=== PATIENT | female | born 1945 | race Caucasian/White ===

== ENCOUNTER 2022-09-25 09:11 | Outpatient (OUT) | payer MEDICARE, SELFPAY ==
[2022-09-25 09:31] LABS: Basophils Percent Auto 0.8 % (0.2-2.0); Eosinophils Absolute Auto 0.2 10^3/uL (0.0-0.7); Eosinophils Percent Auto 4.6 % (0.9-7.0); Hematocrit 33.9 % (36.0-48.0); Hemoglobin 10.7 g/dL (12.0-16.0); Immature Granulocytes Abs Auto 0.03 10^3/uL (0.00-0.03); Immature Granulocytes Pct Auto 0.6 % (0.0-0.5); Lymphocytes Absolute Auto 1.4 10^3/uL (1.2-3.8); Lymphocytes Percent Auto 29.7 % (20.5-60.0); Mean Corpuscular HGB Conc 31.6 g/dL (29.9-35.2); Mean Corpuscular Hemoglobin 31.3 pg (26.7-34.0); Mean Corpuscular Volume 99.1 fL (81.0-99.0); Mean Platelet Volume 10.9 fL (9.5-13.5); Monocytes Absolute Auto 0.5 10^3/uL (0.3-0.8); Monocytes Percent Auto 10.1 % (1.7-12.0); Neutrophils Absolute Auto 2.6 10^3/uL (1.4-6.5); Neutrophils Percent Auto 54.2 % (43.0-75.0); Platelet Count 234 10^3/uL (150-450); Red Blood Count 3.42 10^6/uL (4.20-5.40); Red Cell Distribution Width 15.2 % (11.0-15.0); White Blood Count 4.8 10^3/uL (4.0-11.0)
[2022-09-25 09:44] LABS: Estimated Average Glucose 114 mg/dL; Glycohemoglobin A1C 5.6 % (4.5-6.2)
[2022-09-25 10:11] LABS: Alanine Aminotransferase 28 U/L (14-59); Albumin Globulin Ratio 1.3; Albumin Level 4.2 g/dL (3.4-5.0); Alkaline Phosphatase 43 U/L (46-116); Aspartate Amino Transferase 31 U/L (15-37); BUN Creatinine Ratio 35.2; Bilirubin Direct 0.1 mg/dL (0.0-0.2); Bilirubin Total 0.3 mg/dL (0.2-1.0); Calcium 9.6 mg/dL (8.5-10.1); Carbon Dioxide 22.7 mmol/L (21.0-32.0); Chloride 106 mmol/L (98-107); Chol HDL Ratio 6.6; Cholesterol 145 mg/dL (<=200); Estimated GFR (African America 34 (>=60); Estimated GFR (Non-African Ame 28 (>=60); Globulin 3.2 g/dL; Glucose 155 mg/dL (74-106); HDL Cholesterol 22 mg/dL (40-60); Potassium 4.7 mmol/L (3.5-5.1); Sodium 139 mmol/L (136-145); Total Protein 7.4 g/dL (6.4-8.2); Triglycerides 498 mg/dL (<=150); VLDL CHOLESTEROL 99.6 mg/dL
[2022-09-25 10:13] LABS: LDL Cholesterol Direct 55 mg/dL
[2022-09-25 10:21] LABS: Microalbumin Urine Random <1.3 mg/dL (<=30.0)
== END 2022-09-25 09:12 | disposition home or self-care (01) ==
LOC: LAB 09:11
PROVIDERS: PCP Family Medicine; Visit Provider Family Medicine
DX: E11.65 Type 2 diabetes mellitus with hyperglycemia (principal); I12.9 Hypertensive chronic kidney disease with stage 1 through stage 4 chronic kidney disease, or unspecified chronic kidney disease; E11.22 Type 2 diabetes mellitus with diabetic chronic kidney disease; N18.32 Chronic kidney disease, stage 3b; Z79.899 Other long term (current) drug therapy; E78.5 Hyperlipidemia, unspecified
CPT/HCPCS: 36415; 80048; 80061; 80076; 82043; 82306; 83036; 83721; 85025

== ENCOUNTER 2023-08-26 09:16 | Outpatient (OUT) | payer MEDICARE, SELFPAY ==
[2023-08-26 09:44] LABS: Basophils Percent Auto 0.4 % (0.2-2.0); Eosinophils Absolute Auto 0.2 10^3/uL (0.0-0.7); Eosinophils Percent Auto 3.7 % (0.9-7.0); Hematocrit 30.8 % (36.0-48.0); Hemoglobin 9.5 g/dL (12.0-16.0); Immature Granulocytes Abs Auto 0.03 10^3/uL (0.00-0.03); Immature Granulocytes Pct Auto 0.7 % (0.0-0.5); Lymphocytes Absolute Auto 1.1 10^3/uL (1.2-3.8); Lymphocytes Percent Auto 23.9 % (20.5-60.0); Mean Corpuscular HGB Conc 30.8 g/dL (29.9-35.2); Mean Corpuscular Hemoglobin 30.8 pg (26.7-34.0); Mean Platelet Volume 10.9 fL (9.5-13.5); Monocytes Absolute Auto 0.4 10^3/uL (0.3-0.8); Monocytes Percent Auto 9.6 % (1.7-12.0); Neutrophils Absolute Auto 2.8 10^3/uL (1.4-6.5); Neutrophils Percent Auto 61.7 % (43.0-75.0); Platelet Count 183 10^3/uL (150-450); Red Blood Count 3.08 10^6/uL (4.20-5.40); Red Cell Distribution Width 16.3 % (11.0-15.0); White Blood Count 4.6 10^3/uL (4.0-11.0)
[2023-08-26 09:58] LABS: Estimated Average Glucose 117 mg/dL; Glycohemoglobin A1C 5.7 % (4.5-6.2)
[2023-08-26 10:28] LABS: Alanine Aminotransferase 49 U/L (14-59); Albumin Globulin Ratio 1.3; Albumin Level 3.8 g/dL (3.4-5.0); Alkaline Phosphatase 46 U/L (46-116); Anion Gap 14.2; Aspartate Amino Transferase 51 U/L (15-37); BUN Creatinine Ratio 21.8; Bilirubin Direct 0.1 mg/dL (0.0-0.2); Bilirubin Total 0.3 mg/dL (0.2-1.0); Calcium 8.9 mg/dL (8.5-10.1); Chloride 106 mmol/L (98-107); Chol HDL Ratio 7.7; Cholesterol 193 mg/dL (<=200); Estimated GFR (African America 47 (>=60); Estimated GFR (Non-African Ame 38 (>=60); Glucose 158 mg/dL (74-106); HDL Cholesterol 25 mg/dL (40-60); Potassium 4.2 mmol/L (3.5-5.1); Sodium 141 mmol/L (136-145); Total Protein 6.8 g/dL (6.4-8.2); Triglycerides 761 mg/dL (<=150); Uric Acid 3.3 mg/dL (2.6-6.0); VLDL CHOLESTEROL 152.2 mg/dL
[2023-08-26 10:35] LABS: LDL Cholesterol Direct 54 mg/dL
== END 2023-08-26 09:17 | disposition home or self-care (01) ==
PROVIDERS: PCP Family Medicine; Visit Provider Family Medicine
DX: M10.9 Gout, unspecified (principal); E11.65 Type 2 diabetes mellitus with hyperglycemia; I10 Essential (primary) hypertension; Z79.899 Other long term (current) drug therapy; E78.5 Hyperlipidemia, unspecified
CPT/HCPCS: 36415; 80048; 80061; 80076; 82043; 83036; 83721; 84550; 85025

== ENCOUNTER 2024-05-10 07:41 | Outpatient (RCR) | payer MEDICARE, SELFPAY ==
[2024-05-10 08:35] VITALS: BP 102/63; PULSE 79; TEMP 36.9; O2SAT 94
[2024-05-10 09:34] LABS: Hemoglobin 6.9 g/dL (12.0-16.0)
--- NOTE | 2024-05-10 09:55 | PC.NURSE ---
informed consent for blood transfusion obtained. patient educated on s/s of rxn ie: chest, back, flank pain, itching wheezing chilling etc. instucted to notify staff.
[2024-05-10 09:58] VITALS: BP 102/63; PULSE 77; TEMP 36.7
--- NOTE | 2024-05-10 10:09 | PC.NURSE ---
tolerating transfusion withouot sign or sx of reaction.
[2024-05-10 10:12] VITALS: BP 97/60; PULSE 76; TEMP 36.6
--- NOTE | 2024-05-10 10:14 | PC.NURSE ---
tolerating infusion without any s/s reaction. rate increased to 240ml/hr
[2024-05-10 11:15] VITALS: BP 104/96; PULSE 76; TEMP 36.8
--- NOTE | 2024-05-10 11:36 | PC.NURSE ---
1130 prbcs infused, ns flush started 1140 IV dc'd catheter intact site clear. cottonball and coban applied. tolerated well.
--- NOTE | 2024-05-10 11:48 | PC.NURSE ---
1150 transferred back to [facility] by w/c per [facility] staff
== END 2024-05-24 10:32 | disposition home or self-care (01) ==
LOC: LAB 07:41
PROVIDERS: PCP Family Medicine; Visit Provider Family Medicine
DX: Z51.81 Encounter for therapeutic drug level monitoring (principal); Z79.01 Long term (current) use of anticoagulants; D62 Acute posthemorrhagic anemia
CPT/HCPCS: 36415; 36430; 85014; 85018; 86850; 86900; 86901; 86923; P9016